=== PATIENT | female | born 1925 | race Caucasian/White ===

== ENCOUNTER 2017-05-21 13:36 | Outpatient (CLI) | payer OTHER | END 2017-05-21 16:06 | disposition home or self-care (01) | LOC: RAD 13:36 | DX: M12.872 Other specific arthropathies, not elsewhere classified, left ankle and foot (principal); M19.072 Primary osteoarthritis, left ankle and foot ==

== ENCOUNTER → 2017-06-16 | Emergency (ER) | payer OTHER ==
[~2017-06-16] VITALS: Wt 37.2 kg
[~2017-06-16] MED LIST: LIPITOR20 MG
== END | disposition home or self-care (01) ==
LOC: ER 14:24
DX: S70.01XA Contusion of right hip, initial encounter (principal); M12.551 Traumatic arthropathy, right hip; W18.09XA Striking against other object with subsequent fall, initial encounter; Y93.89 Activity, other specified; Y92.098 Other place in other non-institutional residence as the place of occurrence of the external cause; Y99.8 Other external cause status